=== PATIENT | female | born 1945 | race Caucasian/White ===

== ENCOUNTER → 2018-04-08 | Day surgery (SDC) | payer MEDICARE, OTHER ==
[2018-04-07 12:07] VITALS: BMI 26.9
--- NOTE | 2018-04-07 22:39 | HP ---
HISTORY OF PRESENT ILLNESS: Ms. Bowman is a pleasant woman reporting for evaluation of left lower ex tremity pain consistent with L4 and partial L5 radiculopathies. She has a new MRI from [facility] at reveals severe central canal stenosis and foraminal stenosis at L3-L4 and L4-L5. She hopes to adelfo at this surgically if possible. PAST MEDICAL HISTORY: Significant for hypertension and CHF. PAST SURGICAL HISTORY: Appendectomy, tonsillectomy, hysterectomy, and cholecystectomy. ALLERGIES: No known drug allergies. MEDICATIONS: Unassessed. PHYSICAL EXAMINATION: The patient is alert and oriented x3. Gait is antalgic. Lower extremity karthik r exam is normal. Reflexes are equal and present bilaterally at the patella. No sensory disturbance is discernible. ASSESSMENT: Lumbar stenosis and radiculopathy. PLAN: Dr. Stack met with the patient, reviewed imaging and advocated for L3 through L5 decompression . He explained to the patient the risks, benefits, and alternatives of the procedure. The patient e xpressed understanding and would like to move forward surgery as discussed. I do believe the patient is mentally competent and capable of making medical decisions for herself and we will move forward w [facility] surgery as planned. Bowen Pearce PA-C dictating under Pa Stack M.D.
[~2018-04-08] MED LIST: Bupivacaine HCl 0.5%/Epinephrine 1:200,000/PF 30 ml Vial ONE; CEFAZOLIN/Water 2 GM/20 ML SYRINGE ONE; Fentanyl 100 MCG/2 ML VIAL ONE; Midazolam HCl 2 mg/2 ml Vial ONE; Thrombin 5000 UNITS/5 ML VIAL ONE
--- NOTE | 2018-04-11 10:08 | EKG ---
Test Reason : PREOP Blood Pressure : / mmHG Vent. Rate : 059 BPM Atrial Rate : 059 BPM P-R Int : 194 ms QRS Dur : 088 ms QT Int : 448 ms P-R-T Axes : 028 -19 -53 degrees QTc Int : 443 ms Sinus bradycardia T wave abnormality, consider lateral ischemia Abnormal ECG When compared with ECG of 08-FEB-2012 09:36, Criteria for Septal infarct are no longer Present Confirmed by DR. Diego LOCK ([id number]) on 04/11/2018 10:07:42 AM Referred By: SADI Confirmed By:DR. Diego LOCK
== END ==
LOC: SDC 05:33
PROVIDERS: ATTEND Neurological Surgery
DX: M54.16 Radiculopathy, lumbar region (principal); M48.061 Spinal stenosis, lumbar region without neurogenic claudication; I11.0 Hypertensive heart disease with heart failure; I50.9 Heart failure, unspecified; Z79.82 Long term (current) use of aspirin; Z79.1 Long term (current) use of non-steroidal anti-inflammatories (NSAID); Z79.899 Other long term (current) drug therapy; Z53.9 Procedure and treatment not carried out, unspecified reason
CPT/HCPCS: 93005; 93010; J0670; J2250; J3010

== ENCOUNTER 2018-08-10 05:50 | Day surgery (SDC) | payer MEDICARE, OTHER ==
[2018-08-09 12:09] VITALS: BMI 26.5
--- NOTE | 2018-08-09 13:24 | HP ---
HISTORY OF PRESENT ILLNESS: Ms. Bowman is a very pleasant 73-year-old woman, presenting for evaluation of left lower extremity pain consistent with an L4 and partial L5 radiculopathy. She has a new MRI from [facility] that reveals severe central canal stenosis and foraminal stenosis at L3-L4 and L4-L5. She hopes to treat this surgically if possible. PAST MEDICAL HISTORY: Hypertension and CHF. PAST SURGICAL HISTORY: Appendectomy, tonsillectomy, hysterectomy, and cholecystectomy. ALLERGIES: NO KNOWN DRUG ALLERGIES. MEDICATIONS: . PHYSICAL EXAMINATION: The patient is alert and oriented x3. Gait is antalgic. Lower extremity motor exam is normal. bilaterally at the patella. Sensory disturbance is discernible. ASSESSMENT: Lumbar stenosis with radiculopathy. PLAN: Dr. Stack met with the patient, reviewed imaging and advocated for an L3-L5 decompression. He explained to the patient the risks, benefits, and alternatives to the procedure. The patient expressed understanding and elected to move forward for surgery as discussed. I do believe the patient is mentally competent and capable of making medical decisions for herself. We will move forward with surgery as planned. Job ID: [id number]
[2018-08-10] MEDS ORDERED: Thrombin 5000 UNITS/5 ML VIAL ONE ×2 (06:32→08:50)
[2018-08-10] MEDS ORDERED: Lidocaine 1% w/Epinephrine 1:100K 30 ML VIAL ONE (06:32)
[2018-08-10] MEDS ORDERED: CEFAZOLIN 2 GM/50 ML BAG ONE ×2 (07:00→13:07)
[2018-08-10 07:33] LABS: Hemoglobin 15.4 g/dL (12.0-16.0); Mean Corpuscular HGB CONC 34.2 g/dL (32.0-36.0); Mean Corpuscular Hemoglobin 32.2 pg (27.0-31.0); Mean Corpuscular Volume 94.2 fL (78.0-98.0); Platelet Count 277 thou/uL (130-400); RBC Distribution Width 11.7 % (11.5-14.5); Red Blood Cell (RBC) Count 4.78 mill/uL (4.20-5.40); White Blood Cell (WBC) Count 5.7 thou/uL (4.8-10.8)
[2018-08-10 07:50] LABS: Anion Gap 14 mmol/L (10-20); BUN (Urea Nitrogen) 20 mg/dL (9.8-20.1); Calc. Creatinine Clearance 71 mL/min (70-130); Calcium 9.4 mg/dL (7.8-10.44); Carbon Dioxide 20 mmol/L (23-31); Chloride 109 mmol/L (98-107); Estimated GFR-MDRD 74; Glucose 115 mg/dL (83-110); Potassium 4.3 mmol/L (3.5-5.1); Sodium 139 mmol/L (136-145)
[2018-08-10] MEDS ORDERED: Bupivacaine HCl 0.5%/Epinephrine 1:200,000/PF 30 ml Vial ONE (08:50)
[2018-08-10] MEDS ORDERED: Fentanyl 100 MCG/2 ML VIAL ONE (09:32)
[2018-08-10] MEDS ORDERED: HYDROcodone/Acetaminophen 5/325 mg Tablet ONE (13:06)
[2018-08-10] MEDS ORDERED: PROPOFOL 200 MG/20 ML VIAL ONE (15:19)
[2018-08-10] MEDS ORDERED: Ketorolac Tromethamine 30 MG/ML VIAL ONE (15:19)
[2018-08-10] MEDS ORDERED: Glycopyrrolate 0.2 MG/ML 5 ML SYRINGE ONE (15:19)
[2018-08-10] MEDS ORDERED: Dexamethasone 20 MG/5 ML VIAL ONE (15:19)
[2018-08-10] MEDS ORDERED: Rocuronium Bromide 10 MG/ML (10ML VIAL) ONE (15:19)
[2018-08-10] MEDS ORDERED: Ondansetron PF 4 MG/2 ML Vial ONE (15:19)
[2018-08-10] MEDS ORDERED: Lidocaine 1% PF 5 ML VIAL ONE (15:19)
--- NOTE | 2018-08-10 16:40 | OP ---
DATE OF PROCEDURE: 08/10/2018 FOOD SERVICE REPRESENTATIVE: Bowen Pearce PA-C. INDICATION: Pain. DIAGNOSIS: Lumbar stenosis with lumbar neurogenic claudication and radiculopathy. PROCEDURES: L3 through L5 lumbar decompression. ANESTHESIA: General. DESCRIPTION OF PROCEDURE: The patient was brought into the operating room and placed under general anesthesia. She was flipped from supine to prone position on the operating room table. A linear incision was planned spanning L3-L5. After prepping and draping and after an appropriate operative pause, the incision was created. The soft tissues were swept away from midline. Self-retaining retractors were placed in the wound for optimal exposure. After confirming appropriate level with C-arm fluoroscopy, the spinous process of L4, superior aspect of L5, and inferior aspect of L3 were removed. A high-speed cutting drill bit as well as 2, 3, and 4 mm Kerrison rongeur were used to perform a laminectomy extending from the L3-L4 segment and down to the L4-L5 segment. After completely decompressing these areas, the wound was irrigated. Hemostasis was maintained throughout. The wound was then closed in anatomic layers and a pressure dressing was applied. There were no known procedural complications. Job ID: [id number]
== END 2018-08-10 13:50 | disposition home or self-care (01) ==
LOC: SDC 05:50
PROVIDERS: ATTEND Neurological Surgery
PROC: 01NB0ZZ Release Lumbar Nerve, Open Approach (ICD-10-PCS; principal; 2018-08-10)
DX: M48.062 Spinal stenosis, lumbar region with neurogenic claudication (principal); M54.16 Radiculopathy, lumbar region; I11.0 Hypertensive heart disease with heart failure; I50.9 Heart failure, unspecified; Z79.1 Long term (current) use of non-steroidal anti-inflammatories (NSAID); Z79.82 Long term (current) use of aspirin; Z79.899 Other long term (current) drug therapy
CPT/HCPCS: 36415; 76000; 80048; 85027; J0670; J1100; J1885; J2001; J2405; J2704; J3010; J7620